=== PATIENT | male | born 1960 | race Caucasian/White ===

== ENCOUNTER 2016-11-30 11:48 | Day surgery (SDC) | payer BC ==
[~2016-11-30 11:48] MED LIST: ASPI81 PO; ATOR80TA41 PO; CARV12.5 PO; CLOP75 PO; DIGO.25 PO; GLUCTAB PO; LISI5 PO; WARF5 PO
[2016-11-30] MEDS ORDERED: MULT400T PO (12:47)
[2016-11-30] MEDS ORDERED: CARV12.52 PO (12:47)
[2016-11-30] MEDS ORDERED: CLAR10CA3 PO (12:47)
[2016-11-30] MEDS ORDERED: ASPI1TAB69 PO (12:47)
[2016-11-30] MEDS ORDERED: ATOR1TAB18 PO (12:47)
[2016-11-30] MEDS ORDERED: TRAM50TA PO (12:47)
[2016-11-30] MEDS ORDERED: JANU50TA8 PO (12:47)
[2016-11-30] MEDS ORDERED: XARE20TA PO (12:47)
--- NOTE | 2016-12-01 10:17 | EKG ---
Date Performed: 11/30/2016 Time Performed: 13:44:30 PTAGE: 56 years EKG: Sinus rhythm with PVC(s) Consider left atrial abnormality Right axis deviation IV conduction defect Possible infe rior infarct - age undetermined Anterior T wave changes are nonspecific Compared to previous tracing sinus rhythm has replaced atrial fibrillation Abnormal ECG PREVIOUS TRACING : 11/30/2016 12.47 DOCTOR: Gage Pedroza Interpretating Date/Time 12/01/2016 10:16:19
--- NOTE | 2016-12-01 10:17 | EKG ---
Date Performed: 11/30/2016 Time Performed: 12:47:10 PTAGE: 56 years EKG: Atrial fibrillation Right axis deviation Possible inferior infarct - age undetermined Anter ior T wave changes are nonspecific Compared to the previous tracing, atrial fibrillation is new Abno rmal ECG PREVIOUS TRACING : 01/15/2015 14.08 DOCTOR: Gage Pedroza Interpretating Date/Time 12/01/2016 10:16:03
--- NOTE | 2016-12-03 05:33 | MR ---
cc: JUANITO MULLIGAN DATE 11/30/2016 INDICATION: Atrial fibrillation. PROCEDURE PERFORMED: DC cardioversion. PROCEDURE: After the patient was sedated by Anesthesia, a 360 joule biphasic shock was delivered and converted the patient into sinus rhythm. The patient remained stable and will be discharged home in stable condition. DIAGNOSIS: Successful cardioversion of atrial fibrillation. DISPOSITION: Mr. Taylor will continue on his current medical program including anticoagulation. I will see him back for followup in our office after discharge. Juanito Mulligan MD OQ/SSB /1:38 PM /5:32 AM
== END 2016-11-30 14:28 | disposition home or self-care (01) ==
LOC: HDOC 11:48 → HDIC 11:49 → HDOC 14:28
PROVIDERS: ATTEND Internal Medicine Interventional Cardiology
DX: I48.0 Paroxysmal atrial fibrillation (principal); I10 Essential (primary) hypertension; I25.10 Atherosclerotic heart disease of native coronary artery without angina pectoris; I42.9 Cardiomyopathy, unspecified; E78.5 Hyperlipidemia, unspecified; I25.2 Old myocardial infarction
CPT/HCPCS: 92960; 93005